=== PATIENT | female | born 1955 | race Caucasian/White ===

== ENCOUNTER 2019-09-18 10:36 | Emergency (ER) | payer MEDICARE ==
--- NOTE | 2019-09-18 11:17 | EDM.PDOC ---
ED HPI GENERAL MEDICAL PROBLEM - General Chief Complaint: Cardiovascular Problem Stated Complaint: LEGS SWOLLEN Time Seen by Provider: 09/18/19 11:17 - History of Present Illness INITIAL COMMENTS - FREE TEXT/NARRATIVE: 63-year-old female presents the emergency room with increased leg swelling. This is not associated with worsening shortness of breath however she does have shortness of breath with ambulation but she blames this on her obesity and this is not getting worse. She does not have a history of diabetes yet. Patient is treated for hypertension with losartan hydrochlorothiazide and then she has hydrochlorothiazide that she uses on a as needed basis on Friday she tried 50 mg of hydrochlorothiazide in total. This did not seem to help. She has not had any chest pain chest pressure. Does not have a history of coronary artery disease. Bilateral Leg Pain Score (Numeric/FACES): 4 - Related Data Allergies Allergy/AdvReac Type Severity Reaction Status Date / Time latex Allergy Rash Verified 09/18/19 10:54 Sulfa (Sulfonamide Allergy Rash Verified 09/18/19 10:54 Antibiotics) valacyclovir Allergy Rash Verified 09/18/19 10:54 Home Meds: Home Meds Aspirin [Ecotrin EC] 81 mg PO DAILY 09/18/19 [History] Gabapentin [Neurontin] 300 mg PO DAILY 09/18/19 [History] Losartan/Hydrochlorothiazide [Losartan-HCTZ 100-12.5 MG] 1 tab PO QAM 09/18/19 [ History] Meloxicam 15 mg PO DAILY 09/18/19 [History] Multivitamins [Tab-A-Melodie] 1 tab PO DAILY 09/18/19 [History] Omeprazole 40 mg PO DAILY 09/18/19 [History] Spironolactone [Aldactone] 25 mg PO Q24H #30 tablet 09/18/19 [Rx] Spironolactone [Aldactone] 25 mg PO Q24H #30 tablet 09/18/19 [Rx] buPROPion HCL [Bupropion HCl Sr] 150 mg PO DAILY 09/18/19 [History] hydroCHLOROthiazide [Hydrochlorothiazide] 12.5 mg PO DAILY 09/18/19 [History] Past Medical History HEENT History: Reports: Impaired Vision, Retinal Detachment Cardiovascular History: Reports: Hypertension Other Cardiovascular History: PVC's PERIANESTHESIA NURSE History: Reports: Other PERIANESTHESIA NURSE History: breast lumpectomy Oncologic (Cancer) History: Reports: Breast - Past Surgical History HEENT Surgical History: Reports: Naso-Sinus Surgery GI Surgical History: Reports: Colonoscopy Female Surgical History: Reports: Section, Tubal Ligation Musculoskeletal Surgical History: Reports: Arthroscopic Knee Other Musculoskeletal Surgeries/Procedures:: bunions surgery left foot Social & Family History - Tobacco Use Smoking Status *Q: Never Smoker Second Hand Smoke Exposure: No - Caffeine Use Caffeine Use: Reports: None - Recreational Drug Use Recreational Drug Use: No ED ROS GENERAL - Review of Systems Review Of Systems: See Below Constitutional: Reports: No Symptoms HEENT: Reports: No Symptoms Respiratory: Reports: Shortness of Breath (And at a chronic level not getting worse) Cardiovascular: Reports: Edema. Denies: No Symptoms GI/Abdominal: Reports: No Symptoms ED EXAM, GENERAL - Physical Exam Exam: See Below Exam Limited By: No Limitations General Appearance: Alert, No Apparent Distress, Obese Head: Atraumatic, Normocephalic Neck: Normal Inspection, Supple, Non-Tender, Full Range of Motion Respiratory/Chest: No Respiratory Distress, Lungs Clear, Normal Breath Sounds Cardiovascular: Regular Rate, Rhythm, No Edema, No Murmur EKG INTERPRETATION EKG Date: 09/18/19 Rhythm: Other (Rhythm with unifocal PVCs) [place]: Normal P-Wave: Present QRS: Other (Normal with poor R wave progression) ST-T: Other (Normal non-specific changes) QT: Normal AR/PQ Interval: normal Comparison: NA - No Prior EKG EKG Interpretation Comments: Borderline nondiagnostic EKG Course - Vital Signs Last Recorded V/S: Last Vital Signs Temp 36.8 C 09/18/19 10:48 Pulse 84 09/18/19 10:48 Resp 16 09/18/19 10:48 BP 162/77 H 09/18/19 10:48 Pulse Ox 98 09/18/19 10:48 - Orders/Labs/Meds Orders: Active Orders 24 hr Category Date Time Status EKG Documentation Completion [RC] STAT Care 09/18/19 11:22 Active Chest 1V Frontal [CR] Stat Exams 09/18/19 11:21 Taken Labs: Laboratory Tests 09/18/19 09/18/19 09/18/19 Range/Units 11:30 11:30 11:30 WBC 6.40 (3.98-10.04) K/mm3 RBC 4.49 (3.98-5.22) M/mm3 Hgb 12.7 (11.2-15.7) gm/dl Hct 39.8 (34.1-44.9) % MCV 88.6 (79.4-94.8) fl MCH 28.3 (25.6-32.2) pg MCHC 31.9 L (32.2-35.5) g/dl RDW Std Deviation 48.8 H (36.4-46.3) fL Plt Count 250 (182-369) K/mm3 MPV 10.1 (9.4-12.3) fl Neut % (Auto) 62.6 (34.0-71.1) % Lymph % (Auto) 25.8 (19.3-51.7) % [place] % (Auto) 8.4 (4.7-12.5) % Eos % (Auto) 2.7 (0.7-5.8) Baso % (Auto) 0.5 (0.1-1.2) % Neut # (Auto) 4.01 (1.56-6.13) K/mm3 Lymph # (Auto) 1.65 (1.18-3.74) K/mm3 [place] # (Auto) 0.54 H (0.24-0.36) K/mm3 Eos # (Auto) 0.17 (0.04-0.36) K/mm3 Baso # (Auto) 0.03 (0.01-0.08) K/mm3 Sodium 141 (136-145) mEq/L Potassium 4.3 (3.5-5.1) mEq/L Chloride 104 (98-107) mEq/L Carbon Dioxide 28 (21-32) mEq/L Anion Gap 13.3 (5-15) BUN 16 (7-18) mg/dL Creatinine 0.9 (0.55-1.02) mg/dL Est Cr Clr Drug Dosing 51.55 mL/min Estimated GFR (MDRD) > 60 (>60) mL/min BUN/Creatinine Ratio 17.8 (14-18) Glucose 100 (80-115) mg/dL Calcium 9.4 (8.5-10.1) mg/dL Total Bilirubin 0.3 (0.2-1.0) mg/dL AST 14 L (15-37) U/L ALT 27 (14-59) U/L Alkaline Phosphatase 65 (46-116) U/L Troponin I < 0.017 (0.00-0.056) ng/mL NT-Pro-B Natriuret Pep 151 H (0-125) pg/mL Total Protein 7.2 (6.4-8.2) g/dl Albumin 4.0 (3.4-5.0) g/dl Globulin 3.2 gm/dL Albumin/Globulin Ratio 1.3 (1-2) - Re-Assessments/Exams Free Text/Narrative Re-Assessment/Exam: 09/18/19 12:18 Chest x-ray shows some borderline cardiomegaly EKG shows unifocal PVCs poor R wave progression nonspecific nondiagnostic ST changes and is otherwise nondiagnostic. Laboratory evaluation shows a normal troponin and a minimally elevated proBNP this point the patient be started on spironolactone and see if we can help with her edema in the meantime we will get her scheduled for a echocardiogram Departure - Departure Time of Disposition: 12:21 Disposition: Home, Self-Care 01 Clinical Impression: Edema, Elevated brain natriuretic peptide (BNP) level Prescriptions: Spironolactone [Aldactone] 25 mg PO Q24H #30 tablet Spironolactone [Aldactone] 25 mg PO Q24H #30 tablet Referrals: Syl Mujica NP [Primary Care Provider] - Forms: ED Department Discharge Additional Instructions: Return to the emergency room with any questions problems or worsening symptoms. You should be contacted by radiology to get a heart ultrasound done. You have been started on spironolactone 25 mg take 1 daily to see if this helps with your edema, or the puffiness in your legs. This will take some time for full effect, but you should notice some improvement shortly. Follow-up with Adriana Mujica at the end of this week or the first part of next week have your potassium rechecked. Sepsis Event Note - Evaluation Sepsis Screening Result: No Definite Risk - Focused Exam Vital Signs: Vital Signs Temp Pulse Resp BP Pulse Ox 09/18/19 10:48 36.8 C 84 16 162/77 H 98 Date Exam was Performed: 09/18/19 Time Exam was Performed: 12:18 - My Orders Last 24 Hours: My Active Orders 09/18/19 11:21 Chest 1V Frontal [CR] Stat 09/18/19 11:22 EKG Documentation Completion [RC] STAT - Assessment/Plan Last 24 Hours: My Active Orders 09/18/19 11:21 Chest 1V Frontal [CR] Stat 09/18/19 11:22 EKG Documentation Completion [RC] STAT
--- NOTE | 2019-09-18 12:48 | CR ---
Chest: Portable view of the chest was obtained. Comparison: No prior chest imaging is available. Heart size is felt to be slightly enlarged. Upper mediastinum is normal. Lungs are clear no acute parenchymal change. Minimal scoliosis is noted within the spine. Calcification is noted off the greater tuberosity of the proximal right humerus most likely due to calcific tendinitis. Impression: 1. Heart size slightly prominent. 2. Previous calcific tendinitis within the right shoulder. 3. Nothing acute is otherwise seen on portable chest x-ray. Diagnostic code #2 Study was dictated in MDT
== END 2019-09-18 12:45 | disposition home or self-care (01) ==
LOC: JD.ED 10:36
DX: R60.0 Localized edema (principal); R79.89 Other specified abnormal findings of blood chemistry; I10 Essential (primary) hypertension; Z91.040 Latex allergy status; Z88.2 Allergy status to sulfonamides; Z88.1 Allergy status to other antibiotic agents; Z79.82 Long term (current) use of aspirin; Z79.899 Other long term (current) drug therapy
CPT/HCPCS: 36415; 71045; 71045-26; 80053; 83880; 84484; 85025; 93005; 99285-25

== ENCOUNTER 2019-11-22 06:22 | Day surgery (SDC) | payer MEDICARE, OTHER ==
[~2019-11-22 06:22] MED LIST: Acetaminophen 325 MG Tab PO SCH; Cyclobenzaprine 10 MG Tab PO PRN; Lactated Ringers 1,000 ML IV SCH; Lidocaine 1%/Sod Bicarbonate in NS 8.4% 1 ML Syringe IDERM PRN; Pregabalin 25 MG Cap PO SCH; Sodium Chloride 0.9% 10 ML Syringe FLUSH PRN; oxyCODONE ER 10 MG TAB.ER PO SCH
[2019-11-22] MEDS ORDERED: Ondansetron 4 MG/2 ML SDV IVPUSH PRN ×2 (06:23→08:03)
[2019-11-22] MEDS ORDERED: Bisacodyl 5 MG Tab PO PRN (06:23)
[2019-11-22] MEDS ORDERED: Naloxone 0.4 MG/ML SDV IVPUSH PRN (06:23)
[2019-11-22] MEDS ORDERED: Magnesium Hydroxide 400 MG/5 ML Susp 30 ML Cup PO PRN (06:23)
[2019-11-22] MEDS ORDERED: Sennosides 8.6 MG Tab PO PRN (06:23)
[2019-11-22] MEDS ORDERED: Morphine 2 MG/ML SYRINGE IVPUSH PRN (06:23)
[2019-11-22] MEDS ORDERED: Propofol 200 MG/20 ML SDV ONE (06:40)
[2019-11-22] MEDS ORDERED: Midazolam 1 MG/ML 2 ML SDV ONE (06:40)
[2019-11-22] MEDS ORDERED: fentaNYL 100 MCG/2 ML SDV ONE (06:40)
[2019-11-22] MEDS ORDERED: Ketamine 500 mg/10 ML MDV ONE (06:41)
[2019-11-22] MEDS ORDERED: Lidocaine 1% 4 ML ONE (06:41)
[2019-11-22] MEDS ORDERED: Lidocaine 1% 2 ML ONE (07:33)
[2019-11-22] MEDS ORDERED: Ondansetron 4 MG/2 ML SDV ONE (07:37)
[2019-11-22] MEDS ORDERED: fentaNYL 100 MCG/2 ML SDV IVPUSH PRN (08:03)
--- NOTE | 2019-11-22 08:03 | PCM.PREANE ---
Preanesthetic Assessment - Procedure Proposed Procedure: Left Total Knee Replacement - Anesthesia/Transfusion/Family Hx Anesthesia History: Prior Anesthesia Without Reaction Family History of Anesthesia Reaction: No - Review of Systems General: No Symptoms Pulmonary: Other (Sleep Apnea with CPAP machine) Cardiovascular: No Symptoms, Other (Hypertension) Gastrointestinal: Other (GERD, no symptoms today. ) Neurological: Other (Back injury years ago, seeing chiropractor for adjustments , right side sciatica at times. ) Other: Reports: None (Morbid Obesity BMI 47), Neck Pain (Neck sore/stiff also seeing chiropractor for releif. ), Depression - Physical Assessment NPO Status Date: 11/21/19 NPO Status Time: 22:00 Vital Signs: Last Vital Signs Temp 36.1 C 11/22/19 06:25 Pulse 88 11/22/19 06:25 Resp 16 11/22/19 06:25 BP 135/77 11/22/19 06:25 Pulse Ox 94 L 11/22/19 06:25 Height: 1.6 m Weight: 117.934 kg ASA Class: 3 Mental Status: Alert & Oriented x3 Airway Class: Mallampati = 2 Dentition: Reports: Normal Dentition Thyro-Mental Finger Breadths: 3 Mouth Opening Finger Breadths: 3 ROM/Head Extension: Full Lungs: Clear to Auscultation, Normal Respiratory Effort, Decreased Breath Sounds Cardiovascular: Regular Rate, Regular Rhythm - Lab Values: Laboratory Last Values SARS Virus RNA (PCR) Negative (NEGATIVE) 11/18/19 09:09 MRSA (PCR) Negative 11/10/19 14:36 - Allergies Allergies/Adverse Reactions: Allergies Allergy/AdvReac Type Severity Reaction Status Date / Time latex Allergy Rash Verified 11/21/19 16:53 Sulfa (Sulfonamide Allergy Rash Verified 11/21/19 16:53 Antibiotics) valacyclovir Allergy Rash Verified 11/21/19 16:53 - Anesthesia Plan Pre-Op Medication Ordered: Anxiolytic - Acknowledgements Anesthesia Type Planned: Spinal Pt an Appropriate Candidate for the Planned Anesthesia: Yes Alternatives and Risks of Anesthesia Discussed w Pt/Guardian: Yes Pt/Guardian Understands and Agrees with Anesthesia Plan: Yes PreAnesthesia Questionnaire HEENT History: Reports: Impaired Vision, Retinal Detachment Cardiovascular History: Reports: Hypertension, Other (See Below) Other Cardiovascular History: edema, elevated BNP Respiratory History: Reports: Sleep Apnea Genitourinary History: Reports: None MAILROOM PERSONNEL History: Reports: None Other OB/BYN History: breast lumpectomy Musculoskeletal History: Reports: Other (See Below) Other Musculoskeletal History: knee pain Neurological History: Reports: None Psychiatric History: Reports: Depression Endocrine/Metabolic History: Reports: None Hematologic History: Reports: None Immunologic History: Reports: None Oncologic (Cancer) History: Reports: Breast Dermatologic History: Reports: None - Infectious Disease History Infectious Disease History: Reports: None - Past Surgical History HEENT Surgical History: Reports: Detached Retina, Eye Surgery, Naso-Sinus Surgery Cardiovascular Surgical History: Reports: None Respiratory Surgical History: Reports: None GI Surgical History: Reports: Colonoscopy, EGD Female Surgical History: Reports: Section Male Surgical History: Reports: None Endocrine Surgical History: Reports: None Neurological Surgical History: Reports: None Musculoskeletal Surgical History: Reports: Other (See Below) Other Musculoskeletal Surgeries/Procedures:: left bunionecotmy, bilateral knee arthroscopies Oncologic Surgical History: Reports: Mastectomy Dermatological Surgical History: Reports: None - SUBSTANCE USE Smoking Status *Q: Former Smoker Days Per Week of Alcohol Use: 2 Number of Drinks Per Day: 2 Total Drinks Per Week: 4 Recreational Drug Use History: No - HOME MEDS Home Medications: Home Meds Aspirin [Ecotrin EC] 81 mg PO DAILY 09/18/19 [History] Gabapentin [Neurontin] 300 mg PO TID 09/18/19 [History] Losartan/Hydrochlorothiazide [Losartan-HCTZ 100-12.5 MG] 1 tab PO QAM 09/18/19 [ History] Meloxicam 15 mg PO DAILY 09/18/19 [History] Multivitamins [Tab-A-Melodie] 1 tab PO DAILY 09/18/19 [History] Omeprazole 40 mg PO DAILY 09/18/19 [History] buPROPion HCL [Bupropion HCl Sr] 150 mg PO DAILY 09/18/19 [History] hydroCHLOROthiazide [Hydrochlorothiazide] 12.5 mg PO DAILY 09/18/19 [History] Acetaminophen [Tylenol Extra Strength] 500 mg PO Q4H PRN 11/21/19 [History] Albuterol Sulfate [Albuterol Sulfate Hfa] 2 puff INH Q4H 11/21/19 [History] Cartilage/Collagen/Bor/Hyalur [Joint Health Tablet] 1 tab PO DAILY 11/21/19 [ History] Cholecalciferol (Vitamin D3) [Vitamin D3] 5,000 unit PO DAILY 11/21/19 [History] Hydrocodone/Acetaminophen [Hydrocodone-Acetamin 5-325 mg] 1 tab PO Q6H PRN 11/20 [History] Spironolactone [Aldactone] 25 mg PO QAM 11/21/19 [History] - CURRENT (IN HOUSE) MEDS Current Meds: Current Medications Acetaminophen (Tylenol) 975 mg PO ONETIME [facility] Stop: 11/22/19 14:00 Last Admin: 11/22/19 06:38 Dose: 975 mg Aspirin (Ecotrin) 325 mg PO BID NERIS Bisacodyl (Dulcolax) 5 mg PO DAILY PRN PRN Reason: Constipation Morphine Sulfate 8 mg/Epinephrine HCl 0.3 mg/Cefuroxime Sodium 750 mg/Ketorolac Tromethamine 30 mg/Sodium Chloride 7.9 ml 0 mg .XX ASDIRECTED PRN PRN Reason: Pain Stop: 11/22/19 12:00 Cyclobenzaprine HCl (Flexeril) 10 mg PO TID PRN PRN Reason: Spasms Docusate Sodium (Colace) 100 mg PO BID NERIS Famotidine (Pepcid) 20 mg PO Q12H [facility] Lactated Ringer's (Ringers, Lactated) 1,000 mls @ 125 mls/hr IV ASDIRECTED [facility] Stop: 11/22/19 23:00 Last Admin: 11/22/19 06:30 Dose: 125 mls/hr Cefazolin Sodium/Dextrose 2 gm (/ Premix) 50 mls @ 100 mls/hr IV Q8H [facility] Stop: 11/22/19 22:59 Ketorolac Tromethamine (Toradol) 15 mg IVPUSH Q6H PRN PRN Reason: Pain Lidocaine/Sodium Bicarbonate (Buffered Lidocaine 1% In Ns 8.4%) 0.25 ml IDERM ONETIME PRN PRN Reason: Prior to IV Start Stop: 11/22/19 18:00 Last Admin: 11/22/19 06:29 Dose: 0.25 ml Magnesium Hydroxide (Milk Of Magnesia) 30 ml PO BID PRN PRN Reason: Constipation Morphine Sulfate (Morphine) 2 mg IVPUSH Q2H PRN PRN Reason: Breakthrough Pain Naloxone HCl (Narcan) 0.1 mg IVPUSH Q5M PRN PRN Reason: Oversedation Ondansetron HCl (Zofran) 4 mg IVPUSH Q6H PRN PRN Reason: Nausea/Vomiting Oxycodone HCl (Oxycontin) 10 mg PO ONETIME [facility] Stop: 11/22/19 14:00 Last Admin: 11/22/19 06:38 Dose: 10 mg Oxycodone/Acetaminophen (Percocet 325-5 Mg) 1 - 2 tab PO Q4H PRN PRN Reason: Pain Pregabalin (Lyrica) 50 mg PO ONETIME [facility] Stop: 11/22/19 14:00 Last Admin: 11/22/19 06:37 Dose: 50 mg Senna (Senna) 8.6 mg PO BID PRN PRN Reason: Constipation Sodium Chloride (Saline Flush) 10 ml FLUSH ASDIRECTED PRN PRN Reason: Keep Vein Open Stop: 11/22/19 18:00 Discontinued Medications Bupivacaine HCl (Sensorcaine-Mpf 0.25%) Confirm Administered Dose 30 ml .ROUTE .STK-MED ONE Stop: 11/22/19 06:27 Cefazolin Sodium (Ancef) Confirm Administered Dose 2 gm .ROUTE .STK-MED ONE Stop: 11/22/19 06:27 Fentanyl (Sublimaze) Confirm Administered Dose 100 mcg .ROUTE .STK-MED ONE Stop: 11/22/19 06:41 Lidocaine HCl (Xylocaine-Mpf 1%) Confirm Administered Dose 4 mls @ as directed .ROUTE .STK-MED ONE Stop: 11/22/19 06:42 Lidocaine HCl (Xylocaine-Mpf 1%) Confirm Administered Dose 2 mls @ as directed .ROUTE .STK-MED ONE Stop: 11/22/19 07:34 Iodine (Iodine 2% Mild Tincture) Confirm Administered Dose 30 ml .ROUTE .STK- MED ONE Stop: 11/22/19 06:27 Ketamine HCl (Ketalar) Confirm Administered Dose 500 mg .ROUTE .STK-MED ONE Stop: 11/22/19 06:42 Midazolam HCl (Versed 1 Mg/Ml) Confirm Administered Dose 2 mg .ROUTE .STK-MED ONE Stop: 11/22/19 06:41 Ondansetron HCl (Zofran) Confirm Administered Dose 4 mg .ROUTE .STK-MED ONE Stop: 11/22/19 07:38 Propofol (Diprivan 20 Ml) Confirm Administered Dose 600 mg .ROUTE .STK-MED ONE Stop: 11/22/19 06:41 Tranexamic Acid (Cyklokapron) Confirm Administered Dose 1,000 mg .ROUTE .STK- MED ONE Stop: 11/22/19 06:27 Vancomycin HCl (Vancomycin) Confirm Administered Dose 1 gm .ROUTE .STK-MED ONE Stop: 11/22/19 06:27
[2019-11-22] MEDS: Iodine/Sodium Iodide 2% Tincture 30 ML Bottle ONE ×2 (08:07→08:25)
[2019-11-22] MEDS: Bupivacaine 0.25% 10 ML SDV ONE ×2 (08:08→08:30)
[2019-11-22] MEDS: Morphine 8 MG, EPINEPHrine 0.3 MG, Cefuroxime 750 MG, Ketorolac 30 MG, Sodium Chloride ... PRN ×10 (08:08→08:30)
[2019-11-22] MEDS: ceFAZolin 1 GM Vial ONE ×2 (08:08→08:27)
[2019-11-22] MEDS: Vancomycin 1 GM SDV ONE ×3 (08:09→08:34)
[2019-11-22] MEDS ORDERED: Lactated Ringers 1,000 ML ONE (08:47)
[2019-11-22] MEDS ORDERED: Ropivacaine 0.5% 5 MG/ML 30 ML SDV ONE (09:05)
[2019-11-22] MEDS ORDERED: EPINEPHrine 1 MG/ML SDV ONE (09:05)
--- NOTE | 2019-11-22 09:27 | PCM.POSTAN ---
POST ANESTHESIA ASSESSMENT - MENTAL STATUS Mental Status: Alert, Oriented - VITAL SIGNS Vital Signs: Last Vital Signs Temp 36.1 C 11/22/19 09:02 Pulse 83 11/22/19 09:02 Resp 19 11/22/19 09:02 BP 99/57 L 11/22/19 09:02 Pulse Ox 96 11/22/19 09:02 - RESPIRATORY Respiratory Status: Respiratory Rate WNL, Airway Patent, O2 Saturation Stable - CARDIOVASCULAR CV Status: Pulse Rate WNL, Blood Pressure Stable - GASTROINTESTINAL GI Status: No Symptoms - PAIN Pain Score: 0 - POST OP HYDRATION Hydration Status: Adequate & Stable
--- NOTE | 2019-11-22 09:29 | PCM.SN.2 ---
- Free Text/Narrative Note: Left selective femoral nerve block at the adductor canal for post-procedure pain control Time Out: 909 Start: 910 End: 918 Chart reviewed. Consent signed. Questions answered. Appropriate monitors applied. Time out performed. Left mid-shaft femur evaluated with ultrasound. Scanning medially femur, I was able to identify the femoral artery in the adductor canal. The saphenous nerve was lateral to the artery. The skin was prepped lateral to the ultrasound probe with chlorahexadine. The 21ga 4� insulated block needle was inserted under direct ultrasound guidance into the adductor canal. 25mL of 0.5% ropivacaine with 1:200,000 epinephrine was injected cirmcumferentially about the nerve with intermittent negative aspiration every 5mL. Patient tolerated the procedure well. No complications noted. See pictures on progress note and vital signs on nurse�s notes. Block completed postoperatively. Jess Jay CRNA
[2019-11-22] MEDS ORDERED: Albuterol 6.7 GM Inhaler INH SCH (10:00)
[2019-11-22] MEDS: Acetaminophen/oxyCODONE 325-5 MG Tab PO PRN ×3 (10:19→20:14)
--- NOTE | 2019-11-22 10:23 | CR ---
Left knee: 2 views left knee were obtained. Comparison: No previous knee study is available. Knee prosthesis is seen. Components are aligned. Underlying bony structures are intact. Soft tissue are noted from the surgical procedure. Impression: 1. Satisfactory radiographic appearance of recently placed left knee prosthesis. Diagnostic code #2 This report was dictated in MDT
--- NOTE | 2019-11-22 11:08 | PCM.OPNOTE ---
- General Post-Op/Procedure Note Date of Surgery/Procedure: 11/22/19 Operative Procedure(s): left total knee arthroplasty Pre Op Diagnosis: left knee osteoarthrosis Post-Op Diagnosis: Same Anesthesia Technique: Local, MAC, Spinal Primary Surgeon: Nitesh Doll Anesthesia Provider: Rufina Jay Retort [employer] Press Operator: Kendra Talbot Retort [employer] Press Operator: Judy Pan EBL in mLs: 300 Complications: None Condition: Good Free Text/Narrative:: Intake & Output 11/21/19 11/22/19 11/22/19 22:59 06:59 14:59 Intake Total 50 Balance 50 5 femur 4 tibia 9mm 32x10
[2019-11-22] MEDS ORDERED: Ketorolac 15 MG/ML SDV IVPUSH PRN (13:00)
[2019-11-22] MEDS: ceFAZolin 2 GM in Premix Bag 1 BAG IV SCH ×2 (16:15→23:37)
[2019-11-22] MEDS: Docusate Sodium 100 MG Cap PO SCH (20:14)
[2019-11-22] MEDS: Gabapentin 300 MG Cap PO SCH (20:14)
[2019-11-22] MEDS ORDERED: Famotidine 20 MG Tab PO SCH (21:00)
[2019-11-23] MEDS: Acetaminophen/oxyCODONE 325-5 MG Tab PO PRN ×3 (00:50→09:16)
[2019-11-23] MEDS ORDERED: Spironolactone 25 MG Tab PO SCH (08:00)
--- NOTE | 2019-11-23 08:10 | PCM48HPAN ---
Post Anesthesia Note - EVALUATION WITHIN 48HRS OF ANESTHETIC Vital Signs in Normal Range: Yes Patient Participated in Evaluation: Yes Respiratory Function Stable: Yes Airway Patent: Yes Cardiovascular Function Stable: Yes Hydration Status Stable: Yes Pain Control Satisfactory: Yes Nausea and Vomiting Control Satisfactory: Yes Mental Status Recovered: Yes Vital Signs: Last Vital Signs Temp 36.7 C 11/23/19 04:54 Pulse 88 11/23/19 04:54 Resp 16 11/23/19 04:54 BP 134/88 11/23/19 04:54 Pulse Ox 90 L 11/23/19 04:54
[2019-11-23] MEDS: Docusate Sodium 100 MG Cap PO SCH (08:17)
[2019-11-23] MEDS: Gabapentin 300 MG Cap PO SCH (08:17)
--- NOTE | 2019-11-23 08:22 | PCM.SURGPN ---
- General Info Date of Service: 11/23/19 POD#: 1 Functional Status: Reports: Pain Controlled, Tolerating Diet, Ambulating, Urinating, Incentive Spirometry, Other (The pt states overall she is doing well , "just tired". ) - Patient Data Vitals - Most Recent: Last Vital Signs Temp 98.1 F 11/23/19 04:54 Pulse 88 11/23/19 04:54 Resp 16 11/23/19 04:54 BP 134/88 11/23/19 04:54 Pulse Ox 90 L 11/23/19 04:54 Weight - Most Recent: 268 lb 14.4 oz I&O - Last 24 Hours: Intake & Output 11/22/19 11/23/19 11/23/19 22:59 06:59 14:59 Intake Total 1540 530 Output Total 300 850 Balance 1240 -320 Lab Results Last 24 Hrs: Laboratory Results - last 24 hr 11/23/19 11/23/19 Range/Units 04:22 04:22 WBC 9.07 (3.98-10.04) K/mm3 RBC 4.13 (3.98-5.22) M/mm3 Hgb 11.8 (11.2-15.7) gm/dl Hct 36.4 (34.1-44.9) % MCV 88.1 (79.4-94.8) fl MCH 28.6 (25.6-32.2) pg MCHC 32.4 (32.2-35.5) g/dl RDW Std Deviation 47.0 H (36.4-46.3) fL Plt Count 224 (182-369) K/mm3 MPV 10.5 (9.4-12.3) fl Sodium 136 (136-145) mEq/L Potassium 4.1 (3.5-5.1) mEq/L Chloride 100 (98-107) mEq/L Carbon Dioxide 28 (21-32) mEq/L Anion Gap 12.1 (5-15) BUN 19 H (7-18) mg/dL Creatinine 0.9 (0.55-1.02) mg/dL Est Cr Clr Drug Dosing 50.86 mL/min Estimated GFR (MDRD) > 60 (>60) mL/min BUN/Creatinine Ratio 21.1 H (14-18) Glucose 132 H (80-115) mg/dL Calcium 8.8 (8.5-10.1) mg/dL Total Bilirubin 0.5 (0.2-1.0) mg/dL AST 11 L (15-37) U/L ALT 20 (14-59) U/L Alkaline Phosphatase 46 (46-116) U/L Total Protein 6.8 (6.4-8.2) g/dl Albumin 3.4 (3.4-5.0) g/dl Globulin 3.4 gm/dL Albumin/Globulin Ratio 1.0 (1-2) Med Orders - Current: Current Medications Albuterol (Proventil Hfa) gm INH Q4H [facility] Aspirin (Ecotrin) 325 mg PO BID [facility] Bisacodyl (Dulcolax) 5 mg PO DAILY PRN PRN Reason: Constipation Bupropion HCl (Wellbutrin Xl) 150 mg PO DAILY [facility] Cholecalciferol (Vitamin D3) 5,000 unit PO DAILY [facility] Cyclobenzaprine HCl (Flexeril) 10 mg PO TID PRN PRN Reason: Spasms Docusate Sodium (Colace) 100 mg PO BID [facility] Last Admin: 11/22/19 20:14 Dose: 100 mg Gabapentin (Neurontin) 300 mg PO TID [facility] Last Admin: 11/22/19 20:14 Dose: 300 mg Hydrochlorothiazide (Hydrochlorothiazide) 12.5 mg PO DAILY [facility] Cefazolin Sodium/Dextrose 2 gm (/ Premix) 50 mls @ 100 mls/hr IV Q8H [facility] Stop: 11/23/19 08:59 Last Admin: 11/22/19 23:37 Dose: 100 mls/hr Ketorolac Tromethamine (Toradol) 15 mg IVPUSH Q6H PRN PRN Reason: Pain Losartan Potassium (Cozaar) 100 mg PO DAILY [facility] Magnesium Hydroxide (Milk Of Magnesia) 30 ml PO BID PRN PRN Reason: Constipation Morphine Sulfate (Morphine) 2 mg IVPUSH Q2H PRN PRN Reason: Breakthrough Pain Last Admin: 11/22/19 23:39 Dose: 2 mg Naloxone HCl (Narcan) 0.1 mg IVPUSH Q5M PRN PRN Reason: Oversedation Ondansetron HCl (Zofran) 4 mg IVPUSH Q6H PRN PRN Reason: Nausea/Vomiting Oxycodone/Acetaminophen (Percocet 325-5 Mg) 1 - 2 tab PO Q4H PRN PRN Reason: Pain Last Admin: 11/23/19 04:42 Dose: 1 tab Pantoprazole Sodium (Protonix) 40 mg PO DAILY [facility] Senna (Senna) 8.6 mg PO BID PRN PRN Reason: Constipation Spironolactone (Aldactone) 25 mg PO QAM [facility] Discontinued Medications Acetaminophen (Tylenol) 975 mg PO ONETIME [facility] Stop: 11/22/19 14:00 Last Admin: 11/22/19 06:38 Dose: 975 mg Bupivacaine HCl (Sensorcaine-Mpf 0.25%) Confirm Administered Dose 30 ml .ROUTE .STK-MED ONE Stop: 11/22/19 06:27 Last Admin: 11/22/19 08:30 Dose: 30 ml Cefazolin Sodium (Ancef) Confirm Administered Dose 2 gm .ROUTE .STK-MED ONE Stop: 11/22/19 06:27 Last Admin: 11/22/19 08:27 Dose: 2 gm Morphine Sulfate 8 mg/Epinephrine HCl 0.3 mg/Cefuroxime Sodium 750 mg/Ketorolac Tromethamine 30 mg/Sodium Chloride 7.9 ml 0 mg .XX ASDIRECTED PRN PRN Reason: Pain Stop: 11/22/19 12:00 Last Admin: 11/22/19 08:30 Dose: 788.3 mg Epinephrine HCl (Adrenalin) Confirm Administered Dose 1 mg .ROUTE .STK-MED ONE Stop: 11/22/19 09:06 Famotidine (Pepcid) 20 mg PO Q12H [facility] Fentanyl (Sublimaze) Confirm Administered Dose 100 mcg .ROUTE .STK-MED ONE Stop: 11/22/19 06:41 Fentanyl (Sublimaze) 50 mcg IVPUSH Q5M PRN PRN Reason: Pain Stop: 11/22/19 12:00 Lactated Ringer's (Ringers, Lactated) 1,000 mls @ 125 mls/hr IV ASDIRECTED [facility] Stop: 11/22/19 23:00 Last Admin: 11/22/19 06:30 Dose: 125 mls/hr Lidocaine HCl (Xylocaine-Mpf 1%) Confirm Administered Dose 4 mls @ as directed .ROUTE .STK-MED ONE Stop: 11/22/19 06:42 Lidocaine HCl (Xylocaine-Mpf 1%) Confirm Administered Dose 2 mls @ as directed .ROUTE .[facility] ONE Stop: 11/22/19 07:34 Lactated Ringer's (Ringers, Lactated) Confirm Administered Dose 1,000 mls @ as directed .ROUTE .[facility] ONE Stop: 11/22/19 08:48 Iodine (Iodine 2% Mild Tincture) Confirm Administered Dose 30 ml .ROUTE .[facility] ONE Stop: 11/22/19 06:27 Last Admin: 11/22/19 08:25 Dose: 18 ml Ketamine HCl (Ketalar) Confirm Administered Dose 500 mg .ROUTE .[facility]-MED ONE Stop: 11/22/19 06:42 Lidocaine/Sodium Bicarbonate (Buffered Lidocaine 1% In Ns 8.4%) 0.25 ml IDERM ONETIME PRN PRN Reason: Prior to IV Start Stop: 11/22/19 18:00 Last Admin: 11/22/19 06:29 Dose: 0.25 ml Losartan Potassium (Cozaar) 100 mg PO DAILY [facility] Midazolam HCl (Versed 1 Mg/Ml) Confirm Administered Dose 2 mg .ROUTE .[facility]-MED ONE Stop: 11/22/19 06:41 Non-Formulary Medication (Cartilage/Collagen/Bor/Hyalur [Joint Health Tablet]) 1 tab PO DAILY [facility] Ondansetron HCl (Zofran) Confirm Administered Dose 4 mg .ROUTE .[facility] ONE Stop: 11/22/19 07:38 Ondansetron HCl (Zofran) 4 mg IVPUSH ONETIME PRN PRN Reason: Nausea/Vomiting Stop: 11/22/19 12:00 Oxycodone HCl (Oxycontin) 10 mg PO ONETIME [facility] Stop: 11/22/19 14:00 Last Admin: 11/22/19 06:38 Dose: 10 mg Pregabalin (Lyrica) 50 mg PO ONETIME [facility] Stop: 11/22/19 14:00 Last Admin: 11/22/19 06:37 Dose: 50 mg Propofol (Diprivan 20 Ml) Confirm Administered Dose 600 mg .ROUTE .[facility] ONE Stop: 11/22/19 06:41 Ropivacaine (Naropin 0.5%) Confirm Administered Dose 30 ml .ROUTE .[facility] ONE Stop: 11/22/19 09:06 Sodium Chloride (Saline Flush) 10 ml FLUSH ASDIRECTED PRN PRN Reason: Keep Vein Open Stop: 11/22/19 18:00 Tranexamic Acid (Cyklokapron) Confirm Administered Dose 1,000 mg .ROUTE .STK- MED ONE Stop: 11/22/19 06:27 Last Admin: 11/22/19 08:33 Dose: 1,000 mg Vancomycin HCl (Vancomycin) Confirm Administered Dose 1 gm .ROUTE .STK-MED ONE Stop: 11/22/19 06:27 Last Admin: 11/22/19 08:34 Dose: 1 gm - Exam Wound/Incisions: Dressing Dry and Intact General: Alert, Cooperative, No Acute Distress Lungs: Normal Respiratory Effort Extremities: Other (NVS intact for BLE. Donya's negative.) Sepsis Event Note - Evaluation Sepsis Screening Result: No Definite Risk - Focused Exam Vital Signs: Vital Signs Temp Pulse Resp BP Pulse Ox 11/23/19 04:54 98.1 F 88 16 134/88 90 L 11/22/19 23:31 99.0 F 89 16 131/64 91 L Date Exam was Performed: 11/23/19 Time Exam was Performed: 08:21 - Problem List Review Problem List Initiated/Reviewed/Updated: Yes - My Orders Last 24 Hours: Active Orders 24 hr Category Date Time Status Oxygen Therapy [RC] .PRN Care 11/22/19 08:03 Active RT BiPAP/CPAP [RC] ASDIRECTED Care 11/22/19 20:30 Active Ready for Discharge [RC] PER UNIT ROUTINE Care 11/23/19 08:20 Ordered Regular Diet [DIET] Diet 11/22/19 Lunch Active Albuterol [Proventil HFA] Med 11/22/19 10:00 Pending DOSE gm INH Q4H Aspirin [Ecotrin] Med 11/23/19 09:00 Active 325 mg PO BID Cholecalciferol (Vitamin D3) [Vitamin D3] Med 11/23/19 09:00 Active 5,000 unit PO DAILY Docusate Sodium [Colace] Med 11/22/19 21:00 Active 100 mg PO BID Gabapentin [Neurontin] Med 11/22/19 21:00 Active 300 mg PO TID Ketorolac [Toradol] Med 11/22/19 13:00 Active 15 mg IVPUSH Q6H PRN Losartan [Cozaar] Med 11/23/19 09:00 Pending 100 mg PO DAILY Pantoprazole [ProTONIX] Med 11/23/19 09:00 Active 40 mg PO DAILY Spironolactone [Aldactone] Med 11/23/19 08:00 Active 25 mg PO QAM buPROPion [Wellbutrin XL] Med 11/23/19 09:00 Active 150 mg PO DAILY ceFAZolin [Ancef] 2 gm Med 11/22/19 16:30 Active Premix Bag 1 bag IV Q8H hydroCHLOROthiazide Med 11/23/19 09:00 Active 12.5 mg PO DAILY Medication Orders Albuterol (Proventil Hfa) gm INH Q4H [facility] Aspirin (Ecotrin) 325 mg PO BID [facility] Bisacodyl (Dulcolax) 5 mg PO DAILY PRN PRN Reason: Constipation Bupropion HCl (Wellbutrin Xl) 150 mg PO DAILY [facility] Cholecalciferol (Vitamin D3) 5,000 unit PO DAILY [facility] Cyclobenzaprine HCl (Flexeril) 10 mg PO TID PRN PRN Reason: Spasms Docusate Sodium (Colace) 100 mg PO BID [facility] Last Admin: 11/22/19 20:14 Dose: 100 mg Gabapentin (Neurontin) 300 mg PO TID [facility] Last Admin: 11/22/19 20:14 Dose: 300 mg Hydrochlorothiazide (Hydrochlorothiazide) 12.5 mg PO DAILY [facility] Cefazolin Sodium/Dextrose 2 gm (/ Premix) 50 mls @ 100 mls/hr IV Q8H [facility] Stop: 11/23/19 08:59 Last Admin: 11/22/19 23:37 Dose: 100 mls/hr Infusion: 11/22/19 16:45 Dose: 100 mls/hr Admin: 11/22/19 16:15 Dose: 100 mls/hr Ketorolac Tromethamine (Toradol) 15 mg IVPUSH Q6H PRN PRN Reason: Pain Losartan Potassium (Cozaar) 100 mg PO DAILY [facility] Magnesium Hydroxide (Milk Of Magnesia) 30 ml PO BID PRN PRN Reason: Constipation Morphine Sulfate (Morphine) 2 mg IVPUSH Q2H PRN PRN Reason: Breakthrough Pain Last Admin: 11/22/19 23:39 Dose: 2 mg Naloxone HCl (Narcan) 0.1 mg IVPUSH Q5M PRN PRN Reason: Oversedation Ondansetron HCl (Zofran) 4 mg IVPUSH Q6H PRN PRN Reason: Nausea/Vomiting Oxycodone/Acetaminophen (Percocet 325-5 Mg) 1 - 2 tab PO Q4H PRN PRN Reason: Pain Last Admin: 11/23/19 04:42 Dose: 1 tab Admin: 11/23/19 00:50 Dose: 1 tab Admin: 11/22/19 20:14 Dose: 1 tab Admin: 11/22/19 15:50 Dose: 1 tab Admin: 11/22/19 10:19 Dose: 1 tab Pantoprazole Sodium (Protonix) 40 mg PO DAILY [facility] Senna (Senna) 8.6 mg PO BID PRN PRN Reason: Constipation Spironolactone (Aldactone) 25 mg PO QAM [facility] - Assessment Assessment (Free Text/Narrative):: POD#1 - left TKA - Plan Plan (Free Text/Narrative):: 1. Hgb 11.8. 2. 325mg ASA PO BID, frequent mobility, TEDs. 3. Discharge to home today if cleared by therapy and nursing. 4. Outpatient therapy. The pt's case was discussed with Dr. Doll.
[2019-11-23] MEDS: ceFAZolin 2 GM in Premix Bag 1 BAG IV SCH (08:31)
[2019-11-23] MEDS ORDERED: Hydrochlorothiazide 12.5 MG Cap PO SCH (09:00)
[2019-11-23] MEDS ORDERED: Losartan 100 MG Tab PO SCH (09:00)
[2019-11-23] MEDS ORDERED: Pantoprazole 40 MG Tab.CR PO SCH (09:00)
[2019-11-23] MEDS ORDERED: [UNRECOGNIZED DRUG - OTHER] PO SCH (09:00)
[2019-11-23] MEDS ORDERED: Aspirin 325 MG Tab.EC PO SCH (09:00)
[2019-11-23] MEDS ORDERED: buPROPion 150 MG Tab.ER PO SCH (09:00)
[2019-11-23] MEDS ORDERED: Cholecalciferol (Vitamin D3) 5,000 UNIT Tab PO SCH (09:00)
[2019-11-24] MEDS ORDERED: Losartan 100 MG Tab PO SCH (09:00)
--- NOTE | 2019-11-26 16:00 | OR ---
DATE OF OPERATION: 11/22/2019 SURGEON: Nitesh Doll MD OPERATION PERFORMED: Left total knee arthroplasty. PREOPERATIVE DIAGNOSIS: Left knee osteoarthrosis. POSTOPERATIVE DIAGNOSIS: Left knee osteoarthrosis. ANESTHESIA: Local MAC with spinal. ANESTHESIA PROVIDER: Jeniffer Booker. MARINE STEAM FITTER HELPER: Kendra Talbot PA-C ESTIMATED BLOOD LOSS: 300 mL. COMPLICATIONS: None. CONDITION: Stable. IMPLANTS: 1. Woody size 5 press-fit CR femur. 2. [place] size 4 press-fit [place] tibial base plate. 3. [place] size 4, 9 mm CS polyethylene insert. 4. [place] size 32 x 10 mm press fit asymmetric patella. DESCRIPTION OF PROCEDURE: The patient was identified in the preop holding area. Proper site was marked and identified by the surgeon. The patient was taken back to the operating theater. After adequate anesthesia, the patient's left lower extremity had a nonsterile tourniquet applied and it was sterilely prepped and draped in the usual sterile fashion. OR time-out was performed. The patient received 2 g IV Ancef. At this time, the left lower extremity was exsanguinated. Tourniquet was insufflated to 300 mmHg. Standard medial parapatellar incision was made. Medial parapatellar arthrotomy was created. Deep fibers of the MCL were raised and anterior fat pad was resected. At this time, attention was turned to the patella. Patella measured 23, it was resected to a 14 for a 32 x 10 mm patella. Drill holes were then drilled and found to be in adequate position. The drill was then drilled in the distal femur and the intramedullary distal femoral cutting guide was then placed. 8 mm was resected off the distal femur and was found to be an adequate resection. Sizing guide was placed. It was found to be a size 5 press-fit CR femur that was shown on the implant record at the beginning of this dictation. The drill holes were drilled for the epicondylar axis using [place]ites[place] line and epicondyles as reference. At this time, the 4-in- 1 cutting block was placed. An anterior posterior and anterior and posterior chamfer cuts were then completed. Attention was turned to the tibia. The posterior medial lateral retractors were placed. The extramedullary tibial guide was placed. It was placed in the old footprint of the ACL. It was aligned with the center of the ankle and 0 degrees of slope, 9 mm was then resected off the unaffected side. There was found to be an acceptable reduction. At this time, posterior osteophytes were removed along with medial and lateral meniscus. A trial implant was placed with a correct sized tibia that was mentioned at the beginning of the dictation. A [place] size 4, 9 mm CS polyethylene insert was then placed. The patient's knee was brought through range of motion. The patella was tracking centrally and was stable to varus and valgus stress. Alignment was found to be roughly at 0 degrees. The tibia was stamped and drilled in proper rotation. The universal tibial base plate was impacted in place. Next, the [place] size 5 press-fit CR femur impacted into place and the [place] size 4, 9 mm CS polyethylene insert was placed. The patient's knee was brought into full extension. The patella was then press-fit in place at this time. Tourniquet was deflated. One liter dilute Betadine solution was irrigated through the knee along with 3 L of pulse lavage irrigation with Ancef. Periarticular injection was then completed. The patient's knee was brought through a range of motion. Once the cement had time to set up and it was found to be stable to varus valgus stress, the patella was tracking centrally with full range of motion. At this time, a #2 barbed suture was used for closure of the medial parapatellar arthrotomy. Topical tranexamic acid was placed. 2-0 Vicryl was used subcutaneously, Prineo was used for the skin. The patient tolerated the procedure well and was sent to the PACU in stable condition. KATHRIN /[id number]
== END 2019-11-23 12:18 | disposition home or self-care (01) ==
LOC: JD.SDS 06:22 → EDSTATUS 08:45 → JD.MS 09:49 → UNDOADMIN 09:49 → JD.SDS 11-23 12:18 → UNDODISIN 11-23 12:18
PROVIDERS: ATTEND Orthopaedic Surgery
DX: M17.12 Unilateral primary osteoarthritis, left knee (principal); G89.29 Other chronic pain; M25.562 Pain in left knee; M25.561 Pain in right knee; F32.9 Major depressive disorder, single episode, unspecified; I10 Essential (primary) hypertension; G47.30 Sleep apnea, unspecified; Z11.59 Encounter for screening for other viral diseases; Z85.3 Personal history of malignant neoplasm of breast; Z79.82 Long term (current) use of aspirin; Z79.899 Other long term (current) drug therapy; Z88.2 Allergy status to sulfonamides; Z88.8 Allergy status to other drugs, medicaments and biological substances; Z87.891 Personal history of nicotine dependence; E66.01 Morbid (severe) obesity due to excess calories; Z68.42 Body mass index [BMI] 45.0-49.9, adult
CPT/HCPCS: 27447; 36415; 73560; 80053; 85027; 87641; 97110; 97116; 97161; 97165; 97535; A9270; C1776; J0171; J0690; J0697; J1885; J2001; J2250; J2270; J2405; J2704; J2795; J3010; J3370; J3490; J7120; U0002; 01402; 64450; 99211

== ENCOUNTER 2020-04-05 08:30 | Day surgery (SDC) | payer MEDICARE ==
[~2020-04-05 08:30] MED LIST changes: -Acetaminophen 325 MG Tab PO SCH; -Cyclobenzaprine 10 MG Tab PO PRN; -Pregabalin 25 MG Cap PO SCH; -oxyCODONE ER 10 MG TAB.ER PO SCH
--- NOTE | 2020-04-05 08:49 | PCM.PREANE ---
Preanesthetic Assessment - Procedure Proposed Procedure: EGD Colonoscopy - Anesthesia/Transfusion/Family Hx Anesthesia History: Prior Anesthesia Without Reaction Family History of Anesthesia Reaction: No Transfusion History: No Prior Transfusion(s) - Review of Systems General: No Symptoms Pulmonary: No Symptoms Cardiovascular: Dyspnea on Exertion Gastrointestinal: No Symptoms Neurological: No Symptoms Other: Reports: Neck Pain ("out of place right now") - Physical Assessment NPO Status Date: 04/04/20 NPO Status Time: 00:00 Height: 1.6 m Weight: 119.3 kg ASA Class: 3 Mental Status: Alert & Oriented x3 Dentition: Reports: Normal Dentition, [place](s) Thyro-Mental Finger Breadths: 3 Mouth Opening Finger Breadths: 3 ROM/Head Extension: Full Lungs: Clear to Auscultation, Normal Respiratory Effort Cardiovascular: Regular Rate, Regular Rhythm - Imaging/EKG Impressions: EKG SR rate 68 - Allergies Allergies/Adverse Reactions: Allergies Allergy/AdvReac Type Severity Reaction Status Date / Time latex Allergy Rash Verified 04/04/20 14:29 Sulfa (Sulfonamide Allergy Rash Verified 04/04/20 14:29 Antibiotics) valacyclovir Allergy Rash Verified 04/04/20 14:29 - Blood Blood Available: No Product(s) Available: None - Anesthesia Plan Pre-Op Medication Ordered: None - Acknowledgements Anesthesia Type Planned: MAC Pt an Appropriate Candidate for the Planned Anesthesia: Yes Alternatives and Risks of Anesthesia Discussed w Pt/Guardian: Yes Pt/Guardian Understands and Agrees with Anesthesia Plan: Yes PreAnesthesia Questionnaire HEENT History: Reports: Impaired Vision, Retinal Detachment, Other (See Below) Other HEENT History: eye surgery, sinus surgery, retinal detachment Cardiovascular History: Reports: Hypertension, Other (See Below) Other Cardiovascular History: edema, elevated BNP Respiratory History: Reports: Sleep Apnea Gastrointestinal History: Reports: GERD Genitourinary History: Reports: None POWER GENERATION TECHNICIAN History: Reports: None Other OB/BYN History: breast lumpectomy Musculoskeletal History: Reports: Other (See Below) Other Musculoskeletal History: knee pain Neurological History: Reports: None Psychiatric History: Reports: Depression Endocrine/Metabolic History: Reports: None Hematologic History: Reports: None Immunologic History: Reports: None Oncologic (Cancer) History: Reports: Breast Dermatologic History: Reports: None - Infectious Disease History Infectious Disease History: Reports: None - Past Surgical History HEENT Surgical History: Reports: Detached Retina, Eye Surgery, Naso-Sinus Surgery Cardiovascular Surgical History: Reports: None Respiratory Surgical History: Reports: None GI Surgical History: Reports: Colonoscopy, EGD Female Surgical History: Reports: Section Male Surgical History: Reports: None Endocrine Surgical History: Reports: None Neurological Surgical History: Reports: None Musculoskeletal Surgical History: Reports: Arthroscopic Knee, Knee Replacement, Other (See Below) Other Musculoskeletal Surgeries/Procedures:: left bunionecotmy, bilateral knee arthroscopies, LTK Oncologic Surgical History: Reports: Lumpectomy Dermatological Surgical History: Reports: None - SUBSTANCE USE Tobacco Use Status *Q: Never Tobacco User Second Hand Smoke Exposure: No Days Per Week of Alcohol Use: 1 Number of Drinks Per Day: 0 Total Drinks Per Week: 0 Recreational Drug Use History: No - HOME MEDS Home Medications: Home Meds Gabapentin [Neurontin] 300 mg PO TID 09/18/19 [History] Losartan/Hydrochlorothiazide [Losartan-HCTZ 100-12.5 MG] 1 tab PO QAM 09/18/19 [History] Multivitamins [Tab-A-Melodie] 1 tab PO DAILY 09/18/19 [History] Omeprazole 40 mg PO DAILY 09/18/19 [History] buPROPion HCL [Bupropion HCl Sr] 150 mg PO DAILY 09/18/19 [History] hydroCHLOROthiazide [Hydrochlorothiazide] 12.5 mg PO DAILY 09/18/19 [History] Acetaminophen [Tylenol Extra Strength] 500 mg PO Q4H PRN 11/21/19 [History] Aspirin 81 mg PO DAILY 04/04/20 [History] Mv-Min/Iron/Folic/Calcium/Vitk [Women's Multivitamin Tablet] 1 tab PO DAILY 04/04/20 [History] - CURRENT (IN HOUSE) MEDS Current Meds: Current Medications Lactated Ringer's (Ringers, Lactated) 1,000 mls @ 125 mls/hr IV ASDIRECTED [facility] Stop: 04/05/20 23:00 Lidocaine/Sodium Bicarbonate (Buffered Lidocaine 1% In Ns 8.4%) 0.25 ml IDERM ONETIME PRN PRN Reason: Prior to IV Start Stop: 04/05/20 18:00 Sodium Chloride (Saline Flush) 10 ml FLUSH ASDIRECTED PRN PRN Reason: Keep Vein Open Stop: 04/05/20 18:00
[2020-04-05] MEDS ORDERED: Lidocaine 1% 4 ML ONE (09:33)
[2020-04-05] MEDS ORDERED: Lactated Ringers 1,000 ML ONE ×2 (09:33→10:39)
[2020-04-05] MEDS ORDERED: Propofol 200 MG/20 ML SDV ONE ×4 (09:33→10:48)
[2020-04-05] MEDS ORDERED: fentaNYL 100 MCG/2 ML SDV ONE (09:34)
[2020-04-05] MEDS ORDERED: Ketamine 500 mg/10 ML MDV ONE (10:20)
[2020-04-05] MEDS ORDERED: Midazolam 1 MG/ML 2 ML SDV ONE (10:26)
--- NOTE | 2020-04-05 11:12 | PCM.POSTAN ---
POST ANESTHESIA ASSESSMENT - MENTAL STATUS Mental Status: Alert, Oriented - VITAL SIGNS Vital Signs: Last Vital Signs Temp 36.6 C 04/05/20 08:30 Pulse 86 04/05/20 08:30 Resp 20 04/05/20 08:30 BP 115/61 04/05/20 08:30 Pulse Ox 97 04/05/20 08:30 - RESPIRATORY Respiratory Status: Respiratory Rate WNL, Airway Patent, O2 Saturation Stable - CARDIOVASCULAR CV Status: Pulse Rate WNL, Blood Pressure Stable - GASTROINTESTINAL GI Status: No Symptoms - PAIN Pain Score: 0 - POST OP HYDRATION Hydration Status: Adequate & Stable - OBSERVATIONS Free Text/Narrative:: Routine transfer to recovery with handoff to RN. VSS, SV, HOWE, FAC, CTAB. No concerns at this time. Patient required a higher than normal amount of sedation for case.
--- NOTE | 2020-04-05 11:24 | PCM.OPNOTE ---
- General Post-Op/Procedure Note Date of Surgery/Procedure: 04/05/20 Operative Procedure(s): EGD and colonoscopy Findings: 1. Upper esophagitis 2. Irregular GE junction 3. Gastritis 4. Duodenitis with aphthous ulcer 5. Melanosis coli 6. Diverticulosis 7. Cecal polyp 8. Transverse colon polyp 9. Sigmoid colon polyp x6 10. Internal hemorrhoids Pre Op Diagnosis: History of colon polyps, epigastric pain, history of gastric erosions, inability to wean PPI Post-Op Diagnosis: same Anesthesia Technique: MAC Primary Surgeon: Delia Jade Anesthesia Provider: Jose R Medina Pathology: 1. Duodenal biopsy 2. Gastric antrum biopsy 3. GE junction biopsies 4. Upper esophagus esophagitis biopsy 5. Cecal polyp 6. Transverse colon polyp 7. Sigmoid colon polyps x6 Output, Urine Amount: 0 EBL in mLs: 0 Complications: None apparent Condition: Good
--- NOTE | 2020-04-05 11:38 | PCM.PRNOTE ---
- Free Text/Narrative Note: Operative Report Date of Procedure: April 05, 2020 Pre Op Diagnosis: History of colon polyps, epigastric pain, history of gastric erosions, inability to wean PPI Post-Op Diagnosis: same Operative Procedures: 1. EGD with biopsy 2. Colonoscopy to the cecum with biopsy Primary Surgeon: Delia Jade MD Anesthesia Provider: Jose R Medina CRNA Anesthesia Technique: MAC IV Fluid Replacement, Intraop: See anesthesia record Output, Urine Amount: 0cc EBL in mLs: 0cc Findings: 1. Upper esophagitis 2. Irregular GE junction 3. Gastritis 4. Duodenitis with aphthous ulcer 5. Melanosis coli 6. Diverticulosis 7. Cecal polyp 8. Transverse colon polyp 9. Sigmoid colon polyp x6 10. Internal hemorrhoids Specimens: 1. Duodenal biopsy 2. Gastric antrum biopsy 3. GE junction biopsies 4. Upper esophagus esophagitis biopsy 5. Cecal polyp 6. Transverse colon polyp 7. Sigmoid colon polyps x6 Drain/Tubes: None Indication: The patient is a 64-year-old lady who presented to the clinic with a history of colon polyps. The patient reported symptoms of epigastric pain and inability to wean PPI with a history of gastric erosions in addition to the colon polyps. The patient was consented for a EGD and colonoscopy. Risks of bleeding, and perforation were discussed, and the patient agreed to the risks and wished to proceed. Description of the procedure: The patient was taken back to the endoscopy suite, and placed in the left lateral decubitus position. A bite block was placed. The patient was sedated with MAC anesthesia. The Olympus video endoscope was inserted into the oropharynx and guided under direct vision into the esophagus, stomach, and duodenum. The duodenal bulb and second portion of the duodenum were remarkable for findings of duodenitis in the second portion of the duodenum and a aphthous ulcer. This was biopsied using cold biopsy forceps. The gastric antrum was inspected and cold biopsy forceps were used to take tissue samples for H. pylori. There were findings of gastritis with erythema. The scope was withdrawn to the stomach and retroflexed. There was no increased fluid, food or secretions in the upper gastrointestinal tract. No erosions or ulcers were noted. The scope was withdrawn to the esophagus. A this point we noted an irregular GE junction, biopsies were taken with a cold biopsy forceps in 4 quadrants. No specific Barretts esophagus changes were noted. The endoscope was then withdrawn while paying attention to the mucosa. In the upper one third of the esophagus there was a 4 to 5 mm patch of esophagitis. This was biopsied using cold biopsy forceps. This portion of the procedure was then terminated. Next, anorectal examination was performed. No lesions, masses or hemorrhoids were noted externally or on palpation. The scope was placed into the rectum and advanced to cecum. Upon reaching the cecum, and the patients cecum was entered. There was minimal tortuosity of the colon, however there was significant looping of the colonoscope which required external abdominal pressure to be applied in order to reach the cecum. The ileocecal valve was well visualized and the appendiceal orifice identified. At this point, the scope was slowly withdrawn, paying attention to the mucosa. The patient had excellent bowel prep, 95-100% of the mucosa was visible. A sessile cecal polyp was noted at the appendiceal orifice and removed using a jumbo cold biopsy forceps. It measured approximately 5 mm. A 3 mm flat transverse colon polyp was noted and removed using a cold biopsy forceps. 6 flat polyps measuring 2 to 3 mm were noted throughout the sigmoid colon and removed using a jumbo cold biopsy forceps. The patient did have findings of diverticulosis as well as mild melanosis coli. In the rectum, scope was retroflexed and some hemorrhoidal tissue was noted. The scope was placed back in the lumen and excess air was aspirated. The scope was removed. The patient tolerated the procedure very well. Complications: None apparent Condition: The patient was transported to PACU in stable condition. Delia Jade MD General Surgery
--- NOTE | 2020-04-05 12:32 | PCM48HPAN ---
Post Anesthesia Note - EVALUATION WITHIN 48HRS OF ANESTHETIC Vital Signs in Normal Range: Yes Patient Participated in Evaluation: No Respiratory Function Stable: Yes Airway Patent: Yes Cardiovascular Function Stable: Yes Hydration Status Stable: Yes Pain Control Satisfactory: Yes Nausea and Vomiting Control Satisfactory: Yes Mental Status Recovered: Yes Vital Signs: Last Vital Signs Temp 36.2 C 04/05/20 11:06 Pulse 79 04/05/20 11:38 Resp 16 04/05/20 11:38 BP 165/90 H 04/05/20 11:38 Pulse Ox 95 04/05/20 11:38 - COMMENTS/OBSERVATIONS Free Text/Narrative:: Routine recovery. No concerns.
== END 2020-04-05 11:55 | disposition home or self-care (01) ==
LOC: JD.SDS 08:30
PROVIDERS: ATTEND Surgery
DX: Z12.11 Encounter for screening for malignant neoplasm of colon (principal); D12.0 Benign neoplasm of cecum; D12.3 Benign neoplasm of transverse colon; K29.90 Gastroduodenitis, unspecified, without bleeding; K64.8 Other hemorrhoids; K57.30 Diverticulosis of large intestine without perforation or abscess without bleeding; K63.89 Other specified diseases of intestine; K21.00 Gastro-esophageal reflux disease with esophagitis, without bleeding; K12.0 Recurrent oral aphthae; K31.89 Other diseases of stomach and duodenum; F32.9 Major depressive disorder, single episode, unspecified; I10 Essential (primary) hypertension; G47.30 Sleep apnea, unspecified; Z98.890 Other specified postprocedural states; Z88.8 Allergy status to other drugs, medicaments and biological substances; Z79.82 Long term (current) use of aspirin
CPT/HCPCS: 43239; 45380; J2001; J2250; J2704; J3010; J7120; 00813

== ENCOUNTER 2020-04-17 09:04 | Day surgery (SDC) | payer MEDICARE ==
[~2020-04-17 09:04] MED LIST changes: +Acetaminophen 325 MG Tab PO SCH; +EPINEPHrine 1 MG/ML SDV ONE; -Lactated Ringers 1,000 ML IV SCH; -Lidocaine 1%/Sod Bicarbonate in NS 8.4% 1 ML Syringe IDERM PRN; +Morphine 8 MG, EPINEPHrine 0.3 MG, Cefuroxime 750 MG, Ketorolac 30 MG, Sodium Chloride ... PRN; +Pregabalin 25 MG Cap PO SCH; +Ropivacaine 0.5% 5 MG/ML 30 ML SDV ONE; +oxyCODONE ER 10 MG TAB.ER PO SCH
[2020-04-17] MEDS: Lidocaine 1%/Sod Bicarbonate in NS 8.4% 1 ML Syringe IDERM PRN ×2 (09:14→09:48)
[2020-04-17] MEDS: Lactated Ringers 1,000 ML IV SCH ×2 (09:15→09:47)
--- NOTE | 2020-04-17 09:19 | PCM.PREANE ---
Preanesthetic Assessment - Anesthesia/Transfusion/Family Hx Anesthesia History: Prior Anesthesia Without Reaction Family History of Anesthesia Reaction: No Transfusion History: No Prior Transfusion(s) - Review of Systems General: No Symptoms Pulmonary: No Symptoms Cardiovascular: No Symptoms Gastrointestinal: No Symptoms Neurological: No Symptoms Other: Reports: None - Physical Assessment NPO Status Date: 04/16/20 NPO Status Time: 19:00 ASA Class: 3 Airway Class: Mallampati = 2 Dentition: Reports: Normal Dentition Thyro-Mental Finger Breadths: 3 Mouth Opening Finger Breadths: 3 ROM/Head Extension: Full Lungs: Clear to Auscultation, Normal Respiratory Effort Cardiovascular: Regular Rate, Regular Rhythm - Lab Values: Laboratory Last Values MRSA (PCR) 04/07/20 14:24 - Allergies Allergies/Adverse Reactions: Allergies Allergy/AdvReac Type Severity Reaction Status Date / Time latex Allergy Rash Verified 04/14/20 11:38 Sulfa (Sulfonamide Allergy Rash Verified 04/14/20 11:38 Antibiotics) valacyclovir Allergy Rash Verified 04/14/20 11:38 - Acknowledgements Anesthesia Type Planned: Spinal Pt an Appropriate Candidate for the Planned Anesthesia: Yes Alternatives and Risks of Anesthesia Discussed w Pt/Guardian: Yes Pt/Guardian Understands and Agrees with Anesthesia Plan: Yes PreAnesthesia Questionnaire HEENT History: Reports: Impaired Vision, Retinal Detachment Other HEENT History: eye surgery, sinus surgery, retinal detachment Cardiovascular History: Reports: Hypertension, Other (See Below) Other Cardiovascular History: edema, elevated BNP Respiratory History: Reports: Sleep Apnea (CPAP) Gastrointestinal History: Reports: GERD Genitourinary History: Reports: None BANANA CARRIER History: Other OB/BYN History: breast lumpectomy Musculoskeletal History: Reports: Other (See Below) Other Musculoskeletal History: knee pain Neurological History: Reports: None Psychiatric History: Reports: Depression Endocrine/Metabolic History: Reports: None Hematologic History: Reports: None Immunologic History: Reports: None Oncologic (Cancer) History: Reports: Breast Dermatologic History: Reports: None - Infectious Disease History Infectious Disease History: Reports: None - Past Surgical History HEENT Surgical History: Reports: Detached Retina, Eye Surgery, Naso-Sinus Surgery Cardiovascular Surgical History: Reports: None Respiratory Surgical History: Reports: None GI Surgical History: Reports: Colonoscopy, EGD Female Surgical History: Reports: Section Male Surgical History: Reports: None Endocrine Surgical History: Reports: None Neurological Surgical History: Reports: None Musculoskeletal Surgical History: Reports: Other (See Below) Other Musculoskeletal Surgeries/Procedures:: left bunionecotmy, bilateral knee arthroscopies Oncologic Surgical History: Reports: Mastectomy Dermatological Surgical History: Reports: None - SUBSTANCE USE Tobacco Use Status *Q: Former Tobacco User Recreational Drug Use History: No - HOME MEDS Home Medications: Home Meds Gabapentin [Neurontin] 300 mg PO TID 09/18/19 [History] Losartan/Hydrochlorothiazide [Losartan-HCTZ 100-12.5 MG] 1 tab PO QAM 09/18/19 [History] Omeprazole 40 mg PO DAILY 09/18/19 [History] buPROPion HCL [Bupropion HCl Sr] 150 mg PO DAILY 09/18/19 [History] hydroCHLOROthiazide [Hydrochlorothiazide] 12.5 mg PO DAILY 09/18/19 [History] Acetaminophen [Tylenol Extra Strength] 500 mg PO Q4H PRN 11/21/19 [History] Mv-Min/Iron/Folic/Calcium/Vitk [Women's Multivitamin Tablet] 1 tab PO DAILY 04/04/20 [History] Cholecalciferol (Vitamin D3) [Vitamin D3] 5,000 unit PO DAILY 04/14/20 [History] Aspirin [Aspirin EC] 325 mg PO BID #84 04/17/20 [Rx] Cyclobenzaprine [Flexeril] 10 mg PO BID PRN #20 tab 04/17/20 [Rx] oxyCODONE 5 - 10 mg PO Q4H PRN #60 tab 04/17/20 [Rx] - CURRENT (IN HOUSE) MEDS Current Meds: Current Medications Acetaminophen (Tylenol) 975 mg PO ONETIME NERIS Stop: 04/17/20 13:00 Last Admin: 04/17/20 09:11 Dose: 975 mg Documented by: Morphine Sulfate 8 mg/Epinephrine HCl 0.3 mg/Cefuroxime Sodium 750 mg/Ketorolac Tromethamine 30 mg/Sodium Chloride 7.9 ml 0 mg .XX ASDIRECTED PRN PRN Reason: Pain Stop: 04/17/20 23:00 Lactated Ringer's (Ringers, Lactated) 1,000 mls @ 125 mls/hr IV ASDIRECTED NERIS Stop: 04/17/20 23:00 Lidocaine/Sodium Bicarbonate (Buffered Lidocaine 1% In Ns 8.4%) 0.25 ml IDERM ONETIME PRN PRN Reason: Prior to IV Start Stop: 04/17/20 18:00 Oxycodone HCl (Oxycontin) 10 mg PO ONETIME NERIS Stop: 04/17/20 13:00 Last Admin: 04/17/20 09:11 Dose: 10 mg Documented by: Pregabalin (Lyrica) 50 mg PO ONETIME NERIS Stop: 04/17/20 13:00 Last Admin: 04/17/20 09:11 Dose: 50 mg Documented by: Sodium Chloride (Saline Flush) 10 ml FLUSH ASDIRECTED PRN PRN Reason: Keep Vein Open Stop: 04/17/20 18:00 Discontinued Medications Epinephrine HCl (Adrenalin) Confirm Administered Dose 1 mg .ROUTE .STK-MED ONE Stop: 04/17/20 07:19 Ropivacaine (Naropin 0.5%) Confirm Administered Dose 30 ml .ROUTE .STK-MED ONE Stop: 04/17/20 07:19
[2020-04-17] MEDS ORDERED: Propofol 200 MG/20 ML SDV ONE ×2 (09:32→11:02)
[2020-04-17] MEDS ORDERED: fentaNYL 100 MCG/2 ML SDV ONE (09:32)
[2020-04-17] MEDS ORDERED: Midazolam 1 MG/ML 2 ML SDV ONE ×2 (09:32→11:16)
[2020-04-17] MEDS ORDERED: ceFAZolin 1 GM Vial ONE (09:33)
[2020-04-17] MEDS ORDERED: Lidocaine 1% 4 ML ONE (09:33)
[2020-04-17] MEDS ORDERED: Bupivacaine 0.25% 10 ML SDV ONE ×2 (09:35→09:51)
[2020-04-17] MEDS ORDERED: Vancomycin 1 GM SDV ONE ×2 (09:35→09:51)
[2020-04-17] MEDS ORDERED: Lactated Ringers 1,000 ML ONE (10:50)
[2020-04-17] MEDS ORDERED: fentaNYL 100 MCG/2 ML SDV IVPUSH PRN (10:55)
[2020-04-17] MEDS ORDERED: Ondansetron 4 MG/2 ML SDV IVPUSH PRN (10:55)
[2020-04-17] MEDS ORDERED: Morphine 8 MG, EPINEPHrine 0.3 MG, Cefuroxime 750 MG, Ketorolac 30 MG, Sodium Chloride ... PRN ×5 (11:20)
[2020-04-17] MEDS ORDERED: Ondansetron 4 MG/2 ML SDV ONE (11:51)
--- NOTE | 2020-04-17 12:14 | PCM.POSTAN ---
POST ANESTHESIA ASSESSMENT - MENTAL STATUS Mental Status: Alert, Oriented - VITAL SIGNS Vital Signs: Last Vital Signs Temp 36.6 C 04/17/20 09:00 Pulse 91 04/17/20 09:00 Resp 20 04/17/20 09:00 BP 137/80 04/17/20 09:00 Pulse Ox 96 04/17/20 09:00 - RESPIRATORY Respiratory Status: Respiratory Rate WNL, Airway Patent, O2 Saturation Stable - CARDIOVASCULAR CV Status: Pulse Rate WNL, Blood Pressure Stable - GASTROINTESTINAL GI Status: No Symptoms - PAIN Pain Score: 0 - POST OP HYDRATION Hydration Status: Adequate & Stable
--- NOTE | 2020-04-17 12:24 | PCM.SN.2 ---
- Free Text/Narrative Note: Right selective femoral nerve block at the adductor canal for post-procedure pain control under US guidance requested by Dr. Doll. Date: 04/17/20 Time Out: 1212 Start: 1213 End: 1219 Chart reviewed. Consent signed. Questions answered. Appropriate monitors applied. Time out performed. Right mid-shaft femur identified with ultrasound, scanning medially of femur, the femoral artery in the adductor canal visualized, and the femoral nerve located laterally to the artery. The skin was prepped lateral to the ultrasound probe with chlorahexadine times two. The 21ga 4 insulated block needle was inserted under direct ultrasound guidance into the adductor canal. 25mL of 0.5% ropivacaine with 1:200,000 epinephrine was injected circumferentially around the nerve with intermittent negative aspiration noted. Patient tolerated the procedure well. Sterile technique noted along with sterile gloves, mask, and sterile probe cover. See picture on progress note and vital signs on nurses notes. Block completed in PACU. Natty Watkins CRNA
[2020-04-17] MEDS ORDERED: Meperidine 50 MG/ML Vial IVPUSH ONE (12:37)
[2020-04-17] MEDS ORDERED: oxyCODONE 5 MG Tab PO PRN (13:26)
[2020-04-17] MEDS ORDERED: Cyclobenzaprine 10 MG Tab PO PRN (13:27)
--- NOTE | 2020-04-17 15:08 | PCM48HPAN ---
Post Anesthesia Note - EVALUATION WITHIN 48HRS OF ANESTHETIC Vital Signs in Normal Range: Yes Patient Participated in Evaluation: Yes Respiratory Function Stable: Yes Airway Patent: Yes Cardiovascular Function Stable: Yes Hydration Status Stable: Yes Pain Control Satisfactory: Yes (just some soreness from being stretched out) Nausea and Vomiting Control Satisfactory: Yes Mental Status Recovered: Yes Vital Signs: Last Vital Signs Temp 98.1 F 04/17/20 13:06 Pulse 88 04/17/20 15:00 Resp 16 04/17/20 15:00 BP 118/66 04/17/20 15:00 Pulse Ox 93 L 04/17/20 15:00
--- NOTE | 2020-04-20 14:57 | CR ---
PROCEDURE INFORMATION: Exam: XR Right Knee Exam date and time: 04/17/2020 12:25 PM Age: 64 years old Clinical indication: Condition or disease; Joint replacement status; Patient HX: Post-op right knee replacement films TECHNIQUE: Imaging protocol: XR Right knee. Views: 1 or 2 views. COMPARISON: OT Knee 1V or 2V Lt 11/22/2019 9:44 AM FINDINGS: Bones/joints: Total knee replacement. There is no evidence of acute fracture.There is no evidence of malalignment or dislocation. Soft tissues: Air in the soft tissues may indicate infection or trauma or recent surgery. IMPRESSION: 1. Total knee replacement. 2. Air in the soft tissues may indicate infection or trauma or recent surgery. 3. There is no evidence of acute fracture.There is no evidence of malalignment or dislocation. Thank you for allowing us to participate in the care of your patient. Dictated and Authenticated by: Ruel Pickett MD 04/17/2020 1:57 PM Central Time ([place] & [place]) DAGO
--- NOTE | 2020-04-24 07:29 | PCM.OPNOTE ---
- General Post-Op/Procedure Note Date of Surgery/Procedure: 04/17/20 Operative Procedure(s): right total knee arthroplasty Pre Op Diagnosis: right knee osteoarthrosis Post-Op Diagnosis: Same Anesthesia Technique: Local, MAC, Spinal Primary Surgeon: Nitesh Doll Anesthesia Provider: Rufina Jay Guillotine Trimmer: Kendra Talbot Guillotine Trimmer: Judy Pan EBL in mLs: 350 Complications: None Condition: Good Free Text/Narrative:: 5 femur 4 tibia 9mm 32x10
--- NOTE | 2020-04-25 06:08 | OR ---
DATE OF OPERATION: 04/17/2020 SURGEON: Nitesh Doll MD OPERATION PERFORMED: Right total knee arthroplasty. PREOPERATIVE DIAGNOSIS: Right knee osteoarthrosis. POSTOPERATIVE DIAGNOSIS: Right knee osteoarthrosis. ANESTHESIA: Local MAC with spinal. ANESTHESIA PROVIDER: Jeniffer Booker. BUSINESS DEVELOPMENT EXECUTIVE: Judy Pan LPN and Kendra Talbot PA-C. ESTIMATED BLOOD LOSS: 350 mL. COMPLICATIONS: None. CONDITION: Stable. IMPLANTS: 1. Violet size 5 press-fit CR femur. 2. Woody size 4 press-fit tibial base plate. 3. Violet size 4, 9 mm CS polyethylene insert. 4. Violet size 32 x 10 mm press fit asymmetric patella. DESCRIPTION OF PROCEDURE: The patient was identified in the preop holding area. Proper site was marked and identified by the surgeon. The patient was taken back to the operating theater. After adequate anesthesia, the patient's right lower extremity had a nonsterile tourniquet applied and it was sterilely prepped and draped in the usual sterile fashion. OR time-out was performed. The patient received 2 g IV Ancef. At this time, the right lower extremity was exsanguinated. Tourniquet was insufflated to 300 mmHg. Standard medial parapatellar incision was made. Medial parapatellar arthrotomy was created. Deep fibers of the MCL were raised and anterior fat pad was resected. At this time, attention was turned to the patella. Patella measured 24, it was resected to a 14 for 32 x 10 mm patella. Drill holes were then drilled and found to be in adequate position. The drill was then drilled in the distal femur and the intramedullary distal femoral cutting guide was then placed. 8 mm was resected off the distal femur and was found to be an adequate resection. Sizing guide was placed. It was found to be a size 5 press-fit CR femur that was shown on the implant record at the beginning of this dictation. The drill holes were drilled for the epicondylar axis using Whitesides line and epicondyles as reference. At this time, the 4-in- 1 cutting block was placed. An anterior posterior and anterior and posterior chamfer cuts were then completed. Attention was turned to the tibia. The posterior medial lateral retractors were placed. The extramedullary tibial guide was placed. It was placed in the old footprint of the ACL. It was aligned with the center of the ankle and 0 degrees of slope, 9 mm was then resected off the unaffected side. There was found to be an acceptable reduction. At this time, posterior osteophytes were removed along with medial and lateral meniscus. A trial implant was placed with a correct sized tibia that was mentioned at the beginning of the dictation. A Violet size 4, 9 mm CS polyethylene insert was then placed. The patient's knee was brought through range of motion. The patella was tracking centrally and was stable to varus and valgus stress. Alignment was found to be roughly at 0 degrees. The tibia was stamped and drilled in proper rotation. The universal tibial base plate was impacted in place. Next, the Woody size 5 press-fit CR femur impacted into place and the Violet size 4, 9 mm CS polyethylene insert was placed. The patient's knee was brought into full extension. The patella was then press-fit in place at this time. Tourniquet was deflated. One liter dilute of pulse lavage irrigation with Ancef and then Irricept. Periarticular injection was then completed. The patient's knee was brought through a range of motion. Knee was found to be stable to varus valgus stress, the patella was tracking centrally with full range of motion. At this time, a #2 barbed suture was used for closure of the medial parapatellar arthrotomy. Topical tranexamic acid was placed. 2-0 Vicryl was used subcutaneously, Prineo was used for the skin. The patient tolerated the procedure well and was sent to the PACU in stable condition. MMBRADEN /[id number] DAGO
== END 2020-04-17 16:54 | disposition home or self-care (01) ==
LOC: JD.SDS 09:04
PROVIDERS: ATTEND Orthopaedic Surgery
DX: M17.11 Unilateral primary osteoarthritis, right knee (principal); Z01.812 Encounter for preprocedural laboratory examination; Z20.828 Contact with and (suspected) exposure to other viral communicable diseases; Z88.2 Allergy status to sulfonamides; Z91.040 Latex allergy status; Z88.8 Allergy status to other drugs, medicaments and biological substances; G47.30 Sleep apnea, unspecified; Z99.89 Dependence on other enabling machines and devices; I10 Essential (primary) hypertension; Z79.899 Other long term (current) drug therapy; Z87.891 Personal history of nicotine dependence
CPT/HCPCS: 27447; 73560; 87641; 97162; 97165; A9270; C1776; J0171; J0690; J0697; J1885; J2001; J2175; J2250; J2270; J2405; J2704; J2795; J3010; J3370; J3490; J7120; 01402; 64450